=== PATIENT | male | born 1975 | race Caucasian/White ===

== ENCOUNTER 2017-09-19 07:16 | Observation (INO) | payer OTHER ==
--- NOTE | 2017-09-19 07:25 | EDPHY ---
HPI/HX/ROS/PE/MDM Narrative: CHIEF COMPLAINT: Shortness of breath, HISTORY OF PRESENT ILLNESS: This patient is a 42 year old male complaining of shortness of breath and lightheadedness onset this morning around 4:00am. His sensation of shortness of breath woke him up at that time, and he got up and walked around, but began to feel faint. He endorses possible anxiety. He drove here to the emergency department and sat in the parking lot, but started to feel better. He went for his usual morning run, but then became very lightheaded. He states something feels abnormal or "wrong". He was feeling well last night. He endorses some lightheadedness yesterday while at work and feeling as though he was taking a deep breath but not getting enough oxygen. He felt worse laying down. He denies chest pain or syncopal episodes. He denies fatigue, leg swelling, cough, recent illness. He endorses a sensation of numbness in the left side of his face and left arm, and endorses some nausea. He has not vomited. Currently he feels well other than numbness, no current shortness of breath or lightheadedness. No unusual diaphoresis, but he is unsure since he was recently exercising. No personal or family history of clotting disorders. No recent long travel. No fever, chills, vomiting, diarrhea, urinary complaints, headache. REVIEW OF SYSTEMS: Aside from elements discussed in the HPI, a comprehensive 10-point review of systems was reviewed and is negative. PAST MEDICAL HISTORY: Denies. No past surgical history. Family history of [place] in his father and uncle after age 60. 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 Lives in [place]. Occasional alcohol use. No marijuana use. VITAL SIGNS: Reviewed by me GENERAL: Well-developed, well-nourished, resting comfortably in no respiratory distress. Slight diaphoresis on his face. HEENT: Atraumatic. Eyes: No icterus, no injection. Mouth: moist mucous membranes. No erythema or lesions. Neck: supple with no adenopathy. LUNGS: Clear to auscultation bilaterally, no wheezes, rhonchi or rales. CARDIAC: Regular rate and rhythm, no rubs, murmurs or gallops. ABDOMEN: Soft, nontender, nondistended, bowel sounds normal. BACK: No CVA tenderness. EXTREMITIES: No trauma. No edema. Range of motion is normal throughout. NEURO: Alert and oriented, grossly nonfocal. SKIN: Warm and dry, no rash. PSYCHIATRIC: Normal mentation, no agitation. Portions of this note were transcribed by a medical radiation dosimetrist. I personally performed a history, physical exam, medical decision making, and confirmed accuracy of information the transcribed note. ED Course: 12-LEAD EKG: Please see the full report in [facility]. My interpretation: Sinus bradycardia, rate 49. LVH, downsloping T wave inversions inferiorly. T wave inversions in V4 - V6. Concerning for ischemia. 42 year old male presents following a sensation of shortness of breath and lightheadedness which woke him from sleep this morning around 4:00am, 3.5 hours prior to arrival. The patient's skin is slightly chilly and I do note diaphoresis to his upper lip area, but he was recently running outside in cold weather and endorses some anxiety. EKG at bedside shows sinus bradycardia, rate 49. Evidence of LVH, downsloping T wave inversions inferiorly. T wave inversions in V4 and V5. The patient states his resting heart rate is generally in the low 40s. IV established. Plan for labs including CBC, BMP, Troponin, and lipase. Plan for chest x-ray. Administered 325mg PO Aspirin. Plan to administer 500mL IV NS. Reviewed chest x-ray. Enlarged cardiac silhouette. 08:14 Patient's Troponin is mildly elevated at 0.024 though still within normal limits. Plan for repeat EKG and further labs including D-dimer. Plan to admit for further cardiac workup for possible cardiac ischemia. Plan to consult with licensed veterinary technician talent acquisition director. 08:20 Second EKG demonstrates progression of T-wave inversions across precordium. Concern for potential Wellens warning. Downsloping T-wave inversions inferiorly persist. 08:21 Spoke with hospitalist service. Dr. Drake will accept admission pending consult with cardiology regarding possible cardiac catheterization. 08:[address] Guerrero, licensed veterinary technician. He will consult. Dr. Guerrero at bedside. 09:45 Dr. Drake, hospitalist, at bedside. MDM: After history and physical examination, the differential for chest pain was considered, including but not limited to, myocardial ischemia, acute coronary syndrome, pulmonary embolus, chest wall pain, pleural inflammation and pulmonary infectious causes. - Data Points Imaging Results: Imaging Impressions Chest X-Ray 09/19/17 07:39 Impression: Mild cardiac silhouette enlargement. Imaging: I viewed and interpreted images myself Laboratory Results: Laboratory Results 09/19/17 07:35 09/19/17 07:35 09/19/17 09/19/17 09/19/17 07:35 07:35 07:30 WBC 5.72 10^3/uL 10^3/uL (3.80-9.50) RBC 5.02 10^6/uL 10^6/uL (4.40-6.38) Hgb 16.1 g/dL g/dL (13.7-17.5) Hct 46.0 % % (40.0-51.0) MCV 91.6 fL fL (81.5-99.8) MCH 32.1 pg pg (27.9-34.1) MCHC 35.0 g/dL g/dL (32.4-36.7) RDW 13.1 % % (11.5-15.2) Plt Count 196 10^3/uL 10^3/uL (150-400) MPV 9.5 fL fL (8.7-11.7) Neut % (Auto) 66.3 % % (39.3-74.2) Lymph % (Auto) 23.6 % % (15.0-45.0) [place] % (Auto) 6.1 % % (4.5-13.0) Eos % (Auto) 2.8 % % (0.6-7.6) Baso % (Auto) 0.9 % % (0.3-1.7) Nucleat RBC Rel Count 0.0 % % (0.0-0.2) Absolute Neuts (auto) 3.79 10^3/uL 10^3/uL (1.70-6.50) Absolute Lymphs (auto) 1.35 10^3/uL 10^3/uL (1.00-3.00) Absolute Monos (auto) 0.35 10^3/uL 10^3/uL (0.30-0.80) Absolute Eos (auto) 0.16 10^3/uL 10^3/uL (0.03-0.40) Absolute Basos (auto) 0.05 10^3/uL 10^3/uL (0.02-0.10) Absolute Nucleated RBC 0.00 10^3/uL 10^3/uL (0-0.01) Immature Gran % 0.3 % % (0.0-1.1) Immature Gran # 0.02 10^3/uL 10^3/uL (0.00-0.10) D-Dimer 0.28 ug/mLFEU ug/mLFEU (0.00-0.50) Sodium 140 mEq/L mEq/L (134-144) Potassium 3.6 mEq/L mEq/L (3.5-5.2) Chloride 96 mEq/L L mEq/L (97-110) Carbon Dioxide 28 mEq/l mEq/l (22-31) Anion Gap 16 mEq/L mEq/L (8-16) BUN 15 mg/dL mg/dL (7-23) Creatinine 1.0 mg/dL mg/dL (0.7-1.3) Estimated GFR > 60 Glucose 140 mg/dL H mg/dL (70-100) Calcium 9.3 mg/dL mg/dL (8.5-10.4) Troponin I 0.024 ng/mL ng/mL (0.000-0.034) Lipase 91 IU/L IU/L (23-300) Medications Given: Discontinued Medications Aspirin (Aspirin) 324 mg PO EDNOW ONE Stop: 09/19/17 07:39 Last Admin: 09/19/17 07:43 Dose: 324 mg Sodium Chloride (Ns) 500 mls @ 500 mls/hr IV EDNOW ONE PRN Reason: Protocol Stop: 09/19/17 08:37 Last Admin: 09/19/17 07:45 Dose: 500 mls General Time Seen by Provider: 09/19/17 07:22 Initial Vital Signs: Initial Vital Signs Temperature (C) 36.4 C 09/19/17 07:19 Heart Rate 49 L 09/19/17 07:19 Respiratory Rate 16 09/19/17 07:19 Blood Pressure 157/94 H 09/19/17 07:19 O2 Sat (%) 99 09/19/17 07:19 O2 Delivery Mode Room Air Allergies/Adverse Reactions: No Known Allergies Allergy (Verified 09/19/17 07:18) Home Medications: Medication Instructions Recorded NK [No Known Home Meds] 09/19/17 Departure - Departure Disposition: [facility] Inpatient Acute Clinical Impression: Abnormal EKG Dyspnea Qualifiers: Dyspnea type: shortness of breath Qualified Code(s): R06.02 - Shortness of breath Condition: Fair Report Scribed for: Keily Novoa Report Scribed by: Neida Evangelista Date of Report: 09/19/17 Time of Report: 07:23
--- NOTE | 2017-09-19 07:30 | CPEKG ---
Heart Rate: 49 RR Interval: 1224 P-R Interval: 212 QRSD Interval: 94 QT Interval: 460 QTC Interval: 416 P [place]: 12 QRS [place]: 83 T Wave [place]: -42 EKG Severity - ABNORMAL ECG - EKG Impression: SINUS BRADYCARDIA EKG Impression: LEFT VENTRICULAR HYPERTROPHY EKG Impression: ABNORMAL T, CONSIDER ISCHEMIA, DIFFUSE LEADS Electronically Signed By: Keily Novoa 19-Sep-2017 17:24:02
[2017-09-19] MEDS ORDERED: ASPIRIN 81 MG CHEWABLE TAB PO ONE (07:38)
[2017-09-19] MEDS ORDERED: NS 500 ML IV ONE (07:38)
[2017-09-19 07:48] LABS: % IMMATURE GRANULYOCYTES 0.3 % (0.0-1.1); ABSOLUTE IMMATURE GRANULOCYTES 0.02 10^3/uL (0.00-0.10); ADD DIFF? NO; ADD MORPH? NO; ADD SCAN? NO; ATYPICAL LYMPHOCYTE FLAG 0 (0-99); FRAGMENT RBC FLAG 20 (0-99); HEMOGLOBIN 16.1 g/dL (13.7-17.5); LEFT SHIFT FLG 0 (0-99); LIPEMIA HEMOLYSIS FLAG 90 (0-99); MEAN CELL HEMOGLOBIN 32.1 pg (27.9-34.1); MEAN CELL VOLUME 91.6 fL (81.5-99.8); MEAN PLATELET VOLUME 9.5 fL (8.7-11.7); PLATELET CLUMPS FLAG 10 (0-99); PLATELET COUNT 196 10^3/uL (150-400); RED BLOOD CELL COUNT 5.02 10^6/uL (4.40-6.38); RED CELL DISTRIBUTION WIDTH 13.1 % (11.5-15.2)
[2017-09-19 07:53] LABS: ANION GAP 16 mEq/L (8-16); CALCIUM 9.3 mg/dL (8.5-10.4); CARBON DIOXIDE 28 mEq/l (22-31); CHLORIDE 96 mEq/L (97-110); GLOMERULAR FILTRATION RATE > 60; GLUCOSE 140 mg/dL (70-100); POTASSIUM 3.6 mEq/L (3.5-5.2); SODIUM 140 mEq/L (134-144)
[2017-09-19 08:09] LABS: TROPONIN I 0.024 ng/mL (0.000-0.034)
--- NOTE | 2017-09-19 09:01 | CPEKG ---
Heart Rate: 66 RR Interval: 909 P-R Interval: 212 QRSD Interval: 98 QT Interval: 448 QTC Interval: 470 P [place]: 2 QRS [place]: 67 T Wave [place]: -32 EKG Severity - ABNORMAL ECG - EKG Impression: SINUS RHYTHM EKG Impression: FIRST DEGREE AV BLOCK EKG Impression: LEFT VENTRICULAR HYPERTROPHY EKG Impression: ABNORMAL T, CONSIDER ISCHEMIA, DIFFUSE LEADS Electronically Signed By: Keily Novoa 19-Sep-2017 17:23:58
[2017-09-19] MEDS ORDERED: PROMETHAZINE HCL 25 MG/ML INJ IVP PRN (09:37)
[2017-09-19] MEDS ORDERED: ACETAMINOPHEN 325 MG TAB PO PRN (09:37)
[2017-09-19] MEDS ORDERED: oxyCODONE IR 5 MG TAB PO PRN (09:37)
[2017-09-19 10:07] LABS: TROPONIN I < 0.012 ng/mL (0.000-0.034)
--- NOTE | 2017-09-19 10:19 | GCON ---
[f rep st] CONSULTATION CARDIOLOGY CONSULTATION DATE OF CONSULTATION: 09/19/2017 REQUESTING PHYSICIAN: Dr. Keily Novoa. REASON FOR CONSULTATION: Dyspnea and abnormal ECG. HISTORY: The patient is a 42-year-old male with no significant past medical history. He awoke last night with a sensation of shortness of breath, described as he could not take a deep enough breath. He had a sensation of feeling "off." He had mild numbness on his left side. This morning, he got up and went about his usual activities, including going to a running coaching session. He did his 2-mi le warmup and said that he did not feel right; therefore, he presented to the emergency room for eval uation. In the emergency room, he appeared comfortable and had normal vital signs and oxygen saturat ion. His ECG demonstrates significant voltage criteria for left ventricular hypertrophy with lateral precordial T-wave inversions. PAST MEDICAL HISTORY: He has no significant past medical history. He says that the last time his ch olesterol was checked, it was good; however, this has been several years ago. He does not have a [facility] physician. MEDICATIONS: None. ALLERGIES: None. FAMILY HISTORY: His father had CAD, sustaining his 1st myocardial infarction at age 62. SOCIAL HISTORY: He is single. He has no offspring. He has never been a smoker. Alcohol consumptio n is minimal. He is currently training for a marathon. He is running 80-100 miles per week. REVIEW OF SYSTEMS: Apart from the issues mentioned in the HPI, a 10-point review was negative. PHYSICAL EXAMINATION: VITAL SIGNS: Heart rate in the 40s with sinus bradycardia on the monitor. Bl ood pressure 149/92. GENERAL: A thin, well-developed, well-nourished male, in no acute distress. A lert and oriented x3. HEAD AND NECK: No scleral icterus. Mucous membranes moist. Carotid pulses 2 + without bruits. No JVD. CHEST: Lung briseno clear to auscultation. CARDIAC: Regular rate and rh ythm with a normal S1 and S2. No murmur or gallop. ABDOMEN: Soft, nontender, and nondistended with normal bowel sounds. EXTREMITIES: 2+ pulses and no peripheral edema. LABORATORY STUDIES: Sodium 140, potassium 3.6, BUN and creatinine and 1.0. Troponin is 0 .024. CBC normal. IMPRESSION: This is a healthy 42-year-old male who presents with atypical symptoms of some shortness of breath and mild left-sided numbness. He is not having any chest discomfort. He has a low risk p rofile for coronary artery disease with the exception of a family history. His ECG likely represents an athletic heart. RECOMMENDATIONS: The patient will be placed in observation for serial troponin testing. An echocard iogram has been requested. Further diagnostic and therapeutic decisions await the outcome of these s cammie. /[id number]/MODL
--- NOTE | 2017-09-19 10:54 | GHP ---
[f rep st] HISTORY AND PHYSICAL DATE OF ADMISSION: 09/19/2017 CHIEF COMPLAINT: Shortness of breath. HISTORY OF PRESENT ILLNESS: This is a 42-year-old man who is training for a marathon, running about 100 miles a week, who presents with dyspnea. He tells me that these symptoms have been ongoing for a few years. He has never had them looked into before. Describes this as difficulty taking a deep br eath. Today it was slightly worse, as it woke him up. It was also associated with some left arm num bness. He does not have any chest pain. 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 He notes no lower extremity edema. He is able to continue to run. He has had one episode of syncope during a run when he stopped to use the bathroom. He felt a s though he may pass out today. He denies palpitations. PAST MEDICAL/SURGICAL HISTORY: None. MEDICATIONS: None. ALLERGIES: No known drug allergies. FAMILY HISTORY: His father had an IL at 62 years old. SOCIAL HISTORY: He is training for a marathon. He drinks a few drinks a week. He does not smoke. REVIEW OF SYSTEMS: A 10-point review of systems is conducted and is negative except per HPI. PHYSICAL EXAM: VITAL SIGNS: Blood pressure 149/92, heart rate 41, respiration rate 16, saturating 9 7% on room air, temperature 37. GENERAL: The patient is a pleasant man who is resting comfortably i n no acute distress. HEENT: Normocephalic, atraumatic. CARDIOVASCULAR: Bradycardic. There are no murmurs, rubs, or gallops. PULMONARY: Lungs clear to auscultation bilaterally. ABDOMEN: Soft, no ntender, nondistended. SKIN: No rash. : No [place]. NEUROLOGIC: Alert and oriented x3. He is m oving all extremities. PSYCHIATRIC: Normal mood and affect. LABORATORY DATA: CBC is normal. D-dimer 0.28. Basic metabolic panel is normal. Initial troponin 0 .024. I reviewed his EKGs; he has had 2. His first EKG showed mild ST elevation in leads V2, V3, with a bi phasic T-wave in V4. He has T-wave flattening in his inferior leads. His second EKG shows 1st degre e AV block. He has LVH. He does have biphasic T-waves in V2 through V6. IMPRESSION AND PLAN: A 42-year-old man with dyspnea and abnormal electrocardiogram. Dyspnea/abnormal electrocardiogram: Evaluated by Dr. Guerrero. We will trend his troponins. A seco nd troponin is pending. Echocardiogram has been ordered. Differential includes coronary artery dise ase, possible PE, though this is less likely with a negative D-dimer, structural heart disease. We w ill monitor in the PCU. Further diagnostic workup will be per Cardiology. This is a high-risk diagn osis. /[id number]/MODL
--- NOTE | 2017-09-19 12:52 | ECHO ---
[email or web address] [address] [address] Main: [phone] Fax: Transthoracic Echocardiogram Name: KINGA WEBB MR#: [id number] Study Date: 09/19/2017 Study Time: 10:50 AM Date of : 1975 Age: 42 year(s) Height: 185.4 cm (73 in.) Weight: 70.31 kg (155 lb.) BSA: 1.93 m2 Gender: Male Examination: Echo Indication: Cardiac: dyspnea, Abnormal EKG Image Quality: Contrast: Requested by: Rojas Guerrero BP: 137 mmHg/78 mmHg Heart Rate: Rhythm: Indication: Cardiac: dyspnea, Abnormal EKG Procedure Staff Chef'S Assistant: Jack Ellison Reading Physician: Rojas Guerrero Requesting Provider: Conclusions: Normal size left ventricle. Mild concentric LV hypertrophy. EF is 78 %. No regional wall motion abnormality. Normal appearing valvular structures with normal valve function. Measurements: Chambers Valvular Assessment AV/MV Valvular Assessment TV/PV Normal Normal Normal Name Value Range Name Value Range Name Value Range Ao Carmen (MM): 3.7 cm (2.2 cm-3.7 AV Vmax: 1.62 m/s (1 m/s-1.7 PV Vmax: 1.18 m/s (0.6 m/s-0.9 cm) m/s) m/s) IVSd (2D): 1.2 cm (0.6 cm-1.1 AV maxP mmHg ( - ) PV PGmax: 6 mmHg ( - ) cm) LVOT Vmax: 1.23 m/s (0.7 m/s-1.1 LVDd (2D): 4.8 cm (4.2 cm-5.9 m/s) cm) MV E Vmax: 1.25 m/s ( - ) LVDs (2D): 2.6 cm (2.1 cm-4 MV A Vmax: 0.42 m/s ( - ) cm) MV E/A: 2.98 ( - ) LVPWd (2D): 1.2 cm (0.6 cm-1 cm) LVEF (2D): 78 (>=54 %) Continued Measurements: Valvular Assessment AV/MV Name Value MV E/E' Septal: 10.90 Patient: KINGA WEBB Study Date: 09/19/2017 Page 1 of 2 10:50 AM Findings: Left Ventricle: Normal size left ventricle. Mild concentric LV hypertrophy. Normal global systolic LV function. EF is 78 %. No regional wall motion abnormality. Right Ventricle: Normal size right ventricle. Normal RV function. Left Atrium: The left atrium is normal in size. Right Atrium: The right atrium is normal in size. Mitral Valve: The mitral valve is normal in appearance and function. There is no mitral valve regurgitation. No mitral stenosis is present. Aortic Valve: The aortic valve is normal in appearance. The aortic valve is normal in appearance and function. Tricuspid Valve: The tricuspid valve is normal in appearance and function. There is no tricuspid valve regurgitation. Pulmonic Valve: The pulmonic valve is normal in appearance and function. Aorta: The aorta is normal. Pericardium: No pericardial effusion. 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 (No Signature Object) Patient: KINGA WEBB Study Date: 09/19/2017 Page 2 of 2 10:50 AM [id number]
[2017-09-19] MEDS ORDERED: IOPAMIDOL (ISOVUE 370) 100 ML BTL IV ONE (17:07)
[2017-09-20 05:12] LABS: % IMMATURE GRANULYOCYTES 0.5 % (0.0-1.1); ABSOLUTE IMMATURE GRANULOCYTES 0.03 10^3/uL (0.00-0.10); ADD DIFF? NO; ADD MORPH? NO; ADD SCAN? NO; ATYPICAL LYMPHOCYTE FLAG 0 (0-99); FRAGMENT RBC FLAG 0 (0-99); HEMATOCRIT 45.9 % (40.0-51.0); HEMOGLOBIN 15.9 g/dL (13.7-17.5); LEFT SHIFT FLG 0 (0-99); LIPEMIA HEMOLYSIS FLAG 90 (0-99); MEAN CELL HEMOGLOBIN 32.1 pg (27.9-34.1); MEAN CELL HEMOGLOBIN CONCENTR. 34.6 g/dL (32.4-36.7); MEAN CELL VOLUME 92.5 fL (81.5-99.8); MEAN PLATELET VOLUME 9.9 fL (8.7-11.7); PLATELET CLUMPS FLAG 0 (0-99); PLATELET COUNT 174 10^3/uL (150-400); RED BLOOD CELL COUNT 4.96 10^6/uL (4.40-6.38); RED CELL DISTRIBUTION WIDTH 13.1 % (11.5-15.2)
[2017-09-20 05:23] LABS: ALANINE AMINOTRANSFERASE 47 IU/L (21-72); ALBUMIN 3.5 g/dL (3.5-5.0); ALKALINE PHOSPHATASE 50 IU/L (38-126); ANION GAP 15 mEq/L (8-16); ASPARTATE AMINOTRANSFERASE 34 IU/L (17-59); BILIRUBIN,TOTAL 1.3 mg/dL (0.1-1.4); CALCIUM 9.2 mg/dL (8.5-10.4); CARBON DIOXIDE 27 mEq/l (22-31); CHLORIDE 101 mEq/L (97-110); CREATININE 1.1 mg/dL (0.7-1.3); GLOMERULAR FILTRATION RATE > 60; GLUCOSE 89 mg/dL (70-100); POTASSIUM 5.1 mEq/L (3.5-5.2); SODIUM 143 mEq/L (134-144); TOTAL PROTEIN 5.9 g/dL (6.3-8.2)
[2017-09-20 08:36] VITALS: TEMP 98.1
[2017-09-20 09:07] LABS: CHOLESTEROL 169 mg/dL (140-200); CHOLESTEROL/HDL RATIO 2.77 RATIO (1.00-4.97); HIGH DENSITY LIPOPROTEIN 61 mg/dL (40-65); LDL/HDL RATIO 1.54 RATIO (1.00-3.64); LOW DENSITY LIPOPROTEIN 94 mg/dL (70-100); NON-HIGH DENSITY LIPOPROTEIN 108 mg/dL (90-129); TRIGLYCERIDE 71 mg/dL (40-150); VERY LOW DENSITY LIPOPROTEINS 14 mg/dL (8-25)
[2017-09-20 13:10] VITALS: BP 123/77; PULSE 37; RESP 16; O2SAT 97
--- NOTE | 2017-09-20 14:04 | PDCARPN ---
Cardiology Progress Note Assessment/Plan: No recurrent symptoms. Serial troponins negative. CT coronary angiogram demonstrates LAD atherosclerosis producing a 40-50% narrowing. Mild RCA plaque. Lipid panel reveals total cholesterol 169, HDL 61, LDL 94, and triglycerides 71. Lengthy discussion with the patient about the findings of his CT and the concept of secondary prevention. He is stable for discharge. Recommendation are for aspirin 81 mg daily and atorvastatin 20 mg daily. My office will contact him to arrange an outpatient exercise treadmill test with nuclear imaging. He will have a followup appointment with me in the near future. We will plan for repeat lipid testing in approximately 6-8 weeks to assess his response to atorvastatin. While it is important for him to exercise regularly, I did state that it might not be in his best interest to continue long distance races. 09/20/17 13:59 Subjective: No complaints. Objective: Vital Signs (8 Hrs) Temp Pulse Resp BP Pulse Ox 09/20/17 12:00 36.7 C 37 L 16 123/77 H 97 09/20/17 08:00 36.7 C 38 L 18 119/77 96 Intake/Output (24 Hrs) 09/19/17 09/20/17 09/21/17 05:59 05:59 05:59 Intake Total 1400 Balance 1400 Intake: Oral (ml) 900 IV Intake (ml) 500 Other: Weight 70.307 kg Intake Quantity Yes Sufficient Number of Voids Toilet 2 Result Diagrams: 09/20/17 04:32 09/20/17 04:32 Cardiac Labs: Cardiac Lab Results (72 Hrs) 09/19/17 09/19/17 14:09 09:42 Troponin I < 0.012 < 0.012 - Physical Exam Constitutional: WDWN, healthy appearing, no apparent distress Eyes: anicteric sclera Ears, Nose, Mouth, Throat: moist mucous membranes Cardiovascular: regular rate and rhythm, no murmurs, no rubs, no gallops Respiratory: clear to auscultate bilat Gastrointestinal: normoactive bowel sounds, no tenderness, no masses Skin: no rashes, no edema Neurologic: AAOx3 Psychiatric: not anxious ICD10 Worksheet Patient Problems: Problems Problem Status Onset Abnormal EKG Acute Dyspnea Acute
--- NOTE | 2017-09-20 15:27 | ASMTCMCOM ---
CM Note CM Note Notes: Chart reviewed, per RN no needs identified. CM available if needs arise. Date Signed: 09/20/2017 03:27 PM Electronically Signed By:Keri Guaman RN
--- NOTE | 2017-09-20 16:33 | GDS ---
[f rep st] DISCHARGE SUMMARY CHIEF COMPLAINT: Lightheadedness. HISTORY OF PRESENT ILLNESS: A 42-year-old man who presented with lightheadedness. EKG was abnormal showing T-wave inversions in the precordial leads. 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 Echocardiogram showed some LVH. He was evaluated by Cardiology given the EKG find ings. Cardiac CT was performed which showed a 40%-50% LAD stenosis. Because of this, lipids were ch ecked which showed an LDL of 97. Cardiology recommended medical management, starting aspirin, statin , follow up in the clinic for a nuclear stress test. We will also set up a short followup appointmen t for him. Recommended that he consider the very strenuous exercise that he has been undergoing. I discussed all this with him. He is discharged in stable condition. /[id number]/MODL
[2017-09-21] MEDS ORDERED: ATORVASTATIN CALCIUM 20 MG TAB PO SCH (09:00)
--- NOTE | 2017-09-21 09:07 | ASDISCHSUM ---
Discharge Information Plan Status:Home with No Needs Medically Cleared to Leave:09/20/2017 Discharge Date:09/20/2017 03:35 PM CM D/C Disposition:Home, Routine, Self-Care ADT D/C Disposition:Home, Routine, Self-Care Projected Discharge Date:09/20/2017 03:35 PM Transportation at D/C:Family Discharge Delay Reason: Follow-Up Date:09/20/2017 03:35 PM Discharge Slot: Final Diagnosis: Placement Information Patient Contact Information Contact Name:HUMBERTO Relationship:Father Address: Work Phone: City: [facility] Phone: State/[place] Code: Email: Financial Information Financial Class:HMO and PPO Plans Primary Plan Desc:[employer] PPO POS HMO SIG ADM Primary Plan Number:[id number] Secondary Plan Desc: Secondary Plan Number: Assessment Information [facility] CM Progress Note CM Note CM Note Notes: Chart reviewed, per RN no needs identified. CM available if needs arise. Date Signed: 09/20/2017 03:27 PM Electronically Signed By:Keri Guaman RN Intervention Information
== END 2017-09-20 15:35 | disposition home or self-care (01) ==
LOC: F2W 10:13
PROVIDERS: ADMIT Student in an Organized Health Care Education/Training Program; ATTEND Student in an Organized Health Care Education/Training Program
DX: R06.09 Other forms of dyspnea (principal); I25.10 Atherosclerotic heart disease of native coronary artery without angina pectoris; Z82.49 Family history of ischemic heart disease and other diseases of the circulatory system
CPT/HCPCS: 71020; 75574; 93005; 93306; 99285; G0378; Q9967